=== PATIENT | female | born 2000 | race African-American/Black ===

== ENCOUNTER 2023-03-06 11:30 | Emergency (ER) | payer OTHER ==
[~2023-03-06] VITALS: Ht 162.6 cm; Wt 68.0 kg
[2023-03-06 11:45] VITALS: O2SAT 100
[2023-03-06] MEDS ORDERED: ZYRTEC10 MG PO (12:05)
== END 2023-03-06 12:18 | disposition home or self-care (01) ==
LOC: ER 11:53
DX: R21 Rash and other nonspecific skin eruption (principal); L25.9 Unspecified contact dermatitis, unspecified cause
CPT/HCPCS: 99283